=== PATIENT | female | born 1985 | race Two or more races ===

== ENCOUNTER 2020-05-06 13:54 | Emergency (ER) | payer MEDICAID, OTHER ==
[~2020-05-06] VITALS: Ht 165.1 cm; Wt 90.7 kg
[2020-05-06] MEDS ORDERED: LEVO88TA5 PO (14:06)
[2020-05-06] MEDS ORDERED: IV NORMAL SALINE 250 ML IV ONE (14:34)
[2020-05-06] MEDS ORDERED: SWABABLE VALVE TRANSFER SET EA MC ONE (14:34)
[2020-05-06] MEDS ORDERED: IOHEXOL 300MG/ML 100 ML INFUS..BTL ONE (14:34)
[2020-05-06 14:44] LABS: BASOPHILS # (AUTO) 0.1 K/uL (0.0-8.0); BASOPHILS % (AUTO) 0.7 % (0.0-2.0); EOSINOPHILS # (AUTO) 0.5 K/uL (0.0-0.7); EOSINOPHILS % (AUTO) 7.1 % (0.0-7.0); HEMATOCRIT 34.1 % (31.2-41.9); HEMOGLOBIN 11.1 g/dL (10.9-14.3); LYMPHOCYTES # (AUTO) 2.4 K/uL (20.0-40.0); LYMPHOCYTES % (AUTO) 32.4 % (20.5-51.5); MEAN CORPUSCULAR HEMOGLOBIN 28.1 uug (24.7-32.8); MEAN CORPUSCULAR HGB CONC 33 g/dL (32.3-35.6); MEAN CORPUSCULAR VOLUME 86.3 fL (75.5-95.3); MONOCYTES # (AUTO) 0.4 K/uL (2.0-10.0); MONOCYTES % (AUTO) 5.8 % (0.0-11.0); PLATELET COUNT (AUTO) 249 K/uL (179-408); RED BLOOD CELL COUNT(AUTO) 3.96 MIL/uL (3.63-4.92); WHITE BLOOD COUNT (AUTO) 7.5 K/uL (3.8-11.8)
[2020-05-06 14:48] LABS: CREATININE 0.8 mg/dL (0.6-1.3)
[2020-05-06 14:54] LABS: BILIRUBIN,DIRECT 0.1 mg/dL (0.0-0.2); BILIRUBIN,TOTAL 0.3 mg/dL (0.2-1.0)
--- NOTE | 2020-05-06 15:09 | NUR ---
pt reports that the pt gets itchy with sea food. md notified. order of ct with iv contrast changed into ct w/o contrast.
[2020-05-06 15:21] LABS: *URINE HCG, QUAL NEGATIVE (NEGATIVE)
[2020-05-06 15:22] LABS: *BILIRUBIN,URIN NEGATIVE (NEGATIVE); *BLOOD, URINE NEGATIVE (NEGATIVE); *CLARITY,URINE CLEAR (CLEAR); *COLOR,URINE LIGHT YELLOW (YELLOW); *KETONES,URINE NEGATIVE (NEGATIVE); *UROBILINOGEN,URINE 0.2 E.U./dl (NORMAL); LEUKOCYTE ESTERASE ,URINE NEGATIVE (NEGATIVE); NITRITE, URINE NEGATIVE (NEGATIVE); UGLUCOSE NEGATIVE (NEGATIVE)
[2020-05-06] MEDS ORDERED: IBUP-1955 PO (16:00)
--- NOTE | 2020-05-06 16:20 | NUR ---
Patient discharged to home in stable condition. Written and verbal after care instructions given. Patient verbalizes understanding of instructions. Stressed follow up or return to ER for worsening s/s.PT WALKS IN STEADY GAIT.
== END 2020-05-06 16:38 | disposition home or self-care (01) ==
LOC: ER 13:54
DX: I88.0 Nonspecific mesenteric lymphadenitis (principal); E03.9 Hypothyroidism, unspecified; Z79.890 Hormone replacement therapy; K76.0 Fatty (change of) liver, not elsewhere classified
CPT/HCPCS: 36415; 83690; 84703; 85025; J7050; Q9967